=== PATIENT | male | born 1960 | race Caucasian/White ===

== ENCOUNTER 2016-09-26 21:14 | Emergency (ER) | payer OTHER ==
[~2016-09-26] VITALS: Ht 180.3 cm; Wt 108.9 kg
[2016-09-26 21:25] VITALS: BP 132/86
--- NOTE | 2016-09-26 21:40 | PHYS DOC ---
Past Medical History Past Medical History: High Cholesterol Past Surgical History: No Surgical History Alcohol Use: None Drug Use: None Adult General Chief Complaint Chief Complaint: UPPER EXTREMITY INJURY [facility] HPI Patient is a 55 year old male presents emergency room the complaint of left elbow and proximal forearm pain secondary to left in an object when he felt a pop in the region. He states he's had some pain since that period of time. He states that is been decreasing in nature. He denies any previous injuries to his left elbow such as fractures or dislocations. He denies any history of bone forming disorders. He denies any neuro symptoms such as alteration in sensation or focal weakness. Review of Systems Review of Systems Constitutional: Denies fever or chills [] Eyes: Denies change in visual acuity, redness, or eye pain [] HENT: Denies nasal congestion or sore throat [] Respiratory: Denies cough or shortness of breath [] Cardiovascular: No additional information not addressed in HPI [] GI: Denies abdominal pain, nausea, vomiting, bloody stools or diarrhea [] : Denies dysuria or hematuria [] Musculoskeletal: Denies back pain or joint pain [] Integument: Denies rash or skin lesions [] Neurologic: Denies headache, focal weakness or sensory changes [] Endocrine: Denies polyuria or polydipsia [] Allergies Allergies Allergies Coded Allergies Type Severity Reaction Last Updated Verified No Known Drug Allergies 09/26/16 No Physical Exam Physical Exam Constitutional: Well developed, well nourished, no acute distress, non-toxic appearance. [] HENT: Normocephalic, atraumatic, bilateral external ears normal, oropharynx moist, no oral exudates, nose normal. [] Eyes: PERRLA, EOMI, conjunctiva normal, no discharge. [] Neck: Normal range of motion, no tenderness, supple, no stridor. [] Cardiovascular:Heart rate regular rhythm, no murmur [] Lungs & Thorax: Bilateral breath sounds clear to auscultation [] Abdomen: Bowel sounds normal, soft, no tenderness, no masses, no pulsatile masses. [] Skin: Warm, dry, no erythema, no rash. [] Back: No tenderness, no CVA tenderness. [] Extremities: Left elbow is normal in appearance. There is tenderness to palpation in the region of the radial head. No palpable defect, deformity, instability or crepitus. Patient is able to flex, extend, pronate and supinate full range of motion without any derangement. Left upper external ears neurovascular intact with capillary refill less than 2 seconds in his toes. Neurologic: Alert and oriented X 3, normal motor function, normal sensory function, no focal deficits noted. [] Psychologic: Affect normal, judgement normal, mood normal. [] Current Patient Data Vital Signs Vital Signs Date Time Temp Pulse Resp B/P (MAP) Pulse Ox O2 Delivery O2 Flow Rate FiO2 09/26/16 21:25 98.4 93 18 95 Room Air 98.4 EKG EKG [] Radiology/Procedures Radiology/Procedures 3 views of left elbow were performed with adequate technique. There is no evidence of acute bony injury to either the proximal ulna or radius. There is no posterior fat pad sign. Anterior humeral line is a normal position Course & Med Decision Making Course & Med Decision Making Pertinent Labs and Imaging studies reviewed. (See chart for details) [] Dragon Disclaimer Dragon Disclaimer This electronic medical record was generated, in whole or in part, using a voice recognition dictation system. Departure Departure Impression: Primary Impression: Strain of left elbow Disposition: HOME, SELF-CARE Condition: GOOD Referrals: NORMA THOMPSON MD Patient Instructions: Elbow Injury-Brief Additional Instructions: 1. The x-rays of your elbow here today are normal. You have strained the soft tissues surrounding the elbow and upper part of your forearm. 2. Review the discharge instructions provided for self-care and reasons to return the emergency department. 3. Take the medication as prescribed. 4. You may follow up with the orthopedic doctor that is listed in your discharge paperwork if there are any questions or concerns. Scripts Hydrocodone/Apap 5-325 (NORCO 5-325 TABLET) 1 Each Tablet 1 TAB PO PRN Q6HRS Y for BREAKTHROUGH PAIN, #10 TAB 0 Refills Prov: AMARIS ENRIQUEZ 09/26/16 Naproxen (NAPROXEN) 500 Mg Tablet 1 TAB PO BID for elbow strain, #20 TAB 1 Refill Prov: AMARIS ENRIQUEZ 09/26/16 AMARIS ENRIQUEZ September 26, 2016 21:40
[2016-09-26] MEDS ORDERED: NAPR500T3 PO (22:12)
[2016-09-26] MEDS ORDERED: HYDR-971 PO (22:12)
--- NOTE | 2016-09-27 08:40 | RAD ---
Indication pain associated with lifting. AP oblique and lateral views of the left elbow were obtained. No bony abnormality is seen
== END 2016-09-26 22:26 | disposition home or self-care (01) ==
LOC: ER 21:14
DX: S66.812A Strain of other specified muscles, fascia and tendons at wrist and hand level, left hand, initial encounter (principal); X50.9XXA Other and unspecified overexertion or strenuous movements or postures, initial encounter; Y93.89 Activity, other specified; Y99.8 Other external cause status; Y92.89 Other specified places as the place of occurrence of the external cause
CPT/HCPCS: 73080; 99284